=== PATIENT | female | born 1975 | race Caucasian/White ===

== ENCOUNTER 2020-05-02 12:02 | Inpatient (IN) | payer OTHER, SELFPAY ==
[2020-05-02] VITALS (10 sets, daily range): BP systolic 157–243; BP diastolic 12–121; PULSE 77–95; RESP 18–20; TEMP 36.6–36.7; O2SAT 97–100; BMI 33.9
--- NOTE | ~2020-05-02 | US_ITS ---
EXAMINATION: US retroperitoneal duplex ltd DATE: 05/03/2020 09:19 INDICATION: Uncontrolled hypertension TECHNIQUE: Multiple grayscale, color Doppler, and pulsed Doppler images of the kidneys and renal jose claudine were obtained. COMPARISON: None. FINDINGS: The aorta peak systolic velocity is 110 cm/s. The right renal artery peak systolic velocity is 117 cm /s in the proximal segment, 94 cm/s in the mid segment, and 69 cm/s in the distal segment. The left r enal artery peak systolic velocity is 106 cm/s in the proximal segment, 70 cm/s in the mid segment, a nd 62 cm/s in the distal segment. Kidneys are normal in length measuring 12.1 cm on the right and 11. 7 cm on the left, both kidneys demonstrating smooth contours, normal echogenicity and no hydronephros is IMPRESSION: 1. No Doppler evidence of renal artery stenosis. Reviewed, dictated and finalized at location A.
--- NOTE | ~2020-05-02 | XR_ITS ---
EXAMINATION: XR chest 2V 05/02/2020 12:58 INDICATION: Chest pain PROCEDURE: 2 view chest COMPARISON: Comparison to multiple prior studies sequentially, with oldest reviewed study dated 03/28. FINDINGS: The lungs are clear. The cardiomediastinal silhouette is within normal limits. There are no pleural effusions. There is no pneumothorax suspected. IMPRESSION: 1: NO ACUTE CARDIOPULMONARY DISEASE. Reviewed, dictated and finalized at location A.
--- NOTE | ~2020-05-02 | US_ITS ---
EXAMINATION: US thyroid DATE: 05/03/2020 09:19 INDICATION: Enlarged thyroid TECHNIQUE: Multiple ultrasound images of the thyroid were obtained. COMPARISON: None. FINDINGS: The right thyroid lobe measures 5.3 x 2.0 x 1.7 cm. The left thyroid lobe measures 4.0 x 1.9 x 1.7 c m. There is diffuse heterogeneously decreased echogenicity with coarsened echotexture throughout the thyroid. There are couple solid hyperechoic nodules with smooth margins and without internal echogen ic foci, the smaller measuring 6 mm in maximal diameter and the larger measuring 10 x 6 x 4 mm (TI-RA DS 3, mildly suspicious , FNA if >=2.5 cm, annual followup is >1.5 cm) IMPRESSION: 1. Enlarged heterogeneous thyroid with the a couple TI RADS 3 nodules, the larger measuring 10 mm whi ch does not meet criteria for biopsy or follow-up. Reviewed, dictated and finalized at location A. IMPRESSION: 1. Enlarged heterogeneous thyroid with the a couple TI RADS 3 nodules, the larg er measuring 10 mm which does not meet criteria for biopsy or follow-up.
--- NOTE | ~2020-05-02 | CT_ITS ---
EXAMINATION: CT brain wo con INDICATION: Headache, uncontrolled hypertension COMPARISON: 02/13/2013 TECHNIQUE: Standard unenhanced head CT. The dose-length product (DLP) was 605.33 mGy-cm. The mA was a djusted according to patient size. Iterative reconstruction technique was employed. FINDINGS: There is no intracranial hemorrhage, acute infarction, or abnormal mass lesion. The ventric les are normal. There is no abnormal mass effect or midline shift. The vazquez-white matter differentiat ion is normal. The basal cisterns are patent. The orbits are normal. The paranasal sinuses, mastoids and calvarium are normal. IMPRESSION: 1. No acute intracranial abnormality. Reviewed, dictated and finalized at location A.
--- NOTE | ~2020-05-02 | XR_ITS ---
EXAMINATION: XR abdomen/kub 1V EXAM DATE: 05/04/2020 14:28 INDICATION: Intractable vomiting. TECHNIQUE: Frontal projection(s) of the abdomen for interpretation. Comparison is made to prior exami nation from 08/15/2005. FINDINGS: There are cholecystectomy clips. There is expected amount of colonic stool and gas. No sm all bowel dilation, nonobstructive bowel gas pattern. There are no suspicious calcifications identi fied. There is no organomegaly suspected. The bones are unremarkable. IMPRESSION: Unremarkable abdomen x-ray exam. Reviewed, dictated and finalized at location B.
--- NOTE | 2020-05-02 12:20 | ED.WEAKNESS ---
HPI - Weakness General Chief complaint: Weakness Stated complaint: NAUSEA,WEAKNESS Time Seen by Provider: 05/02/20 12:07 History of Present Illness HPI Narrative: Patient is a 44-year-old female who presents ER with weakness. Reports symptoms began this morning. Associate with some lightheadedness and also central chest discomfort. Reports it feels like she needs to belch but she cannot. She did have improvement of the sensation with Zofran. Denies history of hypertension. No headache or change in vision. No exertional component. Related Data Home Medications Medication Instructions Recorded Confirmed levothyroxine [Synthroid] 150 mcg PO DAILY 05/02/20 05/02/20 Allergies Allergy/AdvReac Type Severity Reaction Status Date / Time nitrofurantoin Allergy Unknown Rash Verified 05/02/20 12:06 Review of Systems Review of Systems: All systems reviewed & are unremarkable except as noted in HPI and below Constitutional: Constitutional: Denies chills, Denies fever(s) and Denies weakness ENT: Reports dizziness, Denies nasal congestion and Denies sore throat Cardiovascular: Cardiovascular: Reports chest pain, Denies rapid heart rate and Denies radiating jaw, neck or arm pain Gastrointestinal: Gastrointestinal: Denies abdominal pain, Reports nausea and Denies vomiting PMFSH Past Medical History Medical History (Updated 05/02/20 @ 19:09 by Tristin Rivers MD) Hypothyroidism Surgical History Surgical History (Updated 05/02/20 @ 14:03 by Tristin Rivers MD) History of appendectomy History of cholecystectomy Family History Family History (Updated 03/13/16 @ 10:19 by DOCTOR UNKNOWN) Other Family history of Alzheimer's disease Family history of glaucoma Hypertension Social History Social History Smoking packs per day: 1 Smoking cigarettes per day: 20.0 Years smoked: 10 Smoking pack-years: 10.00 Smoking status: Former smoker Alcohol intake: never Substance use: never Substance use type: does not use Spiritual care concerns: No Exam Narrative: Exam Narrative: GENERAL: Well-appearing, well-nourished, and in no acute distress. HEAD: Normocephalic, atraumatic. ENT: Mucous membranes moist. CHEST: Clear to auscultation. No respiratory distress. HEART: Regular rate and rhythm. Normal peripheral pulses. ABDOMEN: Soft, nontender, nondistended. EXTREMITIES: Normal range of motion. No edema. SKIN: Warm, dry, no rash. NEURO: Alert and oriented x3. PSYCH: Normal mood and affect. Course Vital Signs Vital signs: Vital Signs Temperature 98.0 F 05/02/20 12:01 Pulse Rate 90 05/02/20 12:01 Respiratory Rate 20 05/02/20 12:01 Blood Pressure 218/119 H 05/02/20 12:01 Pulse Oximetry 98 05/02/20 12:01 Temperature 98.0 F 05/02/20 12:01 Pulse Rate 77 05/02/20 15:00 Respiratory Rate 20 05/02/20 15:00 Blood Pressure 157/78 H 05/02/20 15:00 Pulse Oximetry 100 05/02/20 15:00 MDM - Weakness Lab Data Result diagrams: 05/02/20 12:42 05/02/20 12:42 Labs: Lab Results 05/02/20 05/02/20 05/02/20 Range/Units 12:42 12:42 12:42 WBC 4.9 (4.5-10.0) K/mm3 RBC 4.81 (4.2-5.4) M/mm3 Hgb 13.9 (12.0-15.0) g/dL Hct 41.5 (37.0-47.0) % MCV 86.3 (80-100) fl MCH 28.9 (26-34) pg MCHC 33.5 (32-36) g/dl RDW 12.6 (11.5-14.5) % Plt Count 190 (150-375) k/mm3 MPV 10.2 (7.4-10.4) fl Immature Gran % (Auto) 0.2 (0-0.5) % Neut % (Auto) 54.6 (45.5-73.1) % Lymph % (Auto) 31.7 (18.3-44.2) % Arroyo % (Auto) 8.6 H (2.6-8.5) % Eos % (Auto) 3.9 (0-4.4) % Baso % (Auto) 1.0 (0.2-1.2) % Lymph # (Auto) 1.55 (0.9-3.2) K/mm3 [place]royo # (Auto) 0.4 (0.1-0.6) K/mm3 Eos # (Auto) 0.2 (0-0.3) K/mm3 Baso # (Auto) 0.1 (0.0-0.1) K/mm3 Abs Immat Gran (auto) 0.01 (0.00-0.031) K/mm3 Absolute Neuts (auto) 2.7 (1.3-6.7) K/mm3 Absolute Nucleated RBC 0.0 (0.0-
[2020-05-02] MEDS: hydrALAZINE HCL 20 MG/ML VIAL 10 MG IV PUSH ×3 (12:42→20:27)
[2020-05-02 12:49] LABS: Basophils Absolute Auto 0.1 K/mm3 (0.0-0.1); Eosinophils Absolute Auto 0.2 K/mm3 (0-0.3); Eosinophils Percent Auto 3.9 % (0-4.4); Hematocrit 41.5 % (37.0-47.0); Hemoglobin 13.9 g/dL (12.0-15.0); Immature Granulocyte Absolute 0.01 K/mm3 (0.00-0.031); Immature Granulocyte Percent A 0.2 % (0-0.5); Lymphocytes Absolute Auto 1.55 K/mm3 (0.9-3.2); Lymphocytes Percent Auto 31.7 % (18.3-44.2); Mean Corpuscular HGB Conc 33.5 g/dl (32-36); Mean Corpuscular Hemoglobin 28.9 pg (26-34); Mean Corpuscular Volume 86.3 fl (80-100); Mean Platelet Volume 10.2 fl (7.4-10.4); Monocytes Absolute Auto 0.4 K/mm3 (0.1-0.6); Monocytes Percent Auto 8.6 % (2.6-8.5); Neutrophils Absolute Auto 2.7 K/mm3 (1.3-6.7); Neutrophils Percent Auto 54.6 % (45.5-73.1); Platelet Count Result 190 k/mm3 (150-375); Red Blood Count 4.81 M/mm3 (4.2-5.4); Red Cell Distribution Width 12.6 % (11.5-14.5); White Blood Count 4.9 K/mm3 (4.5-10.0)
[2020-05-02 13:00] LABS: Partial Thromboplastin Time 37.5 SECONDS (22.3-36.8)
[2020-05-02 13:00] LABS: Add Urine Microscopic? NO; Appearance Urine Clear (Clear); Bilirubin Urine Negative (Negative); Blood Urine Negative (Negative); Color Urine Colorless (Yellow); Glucose Urine UA Negative (Negative); Ketones Urine Negative (Negative); Leukocyte Esterase Ur Negative LEU/UL (Negative); Nitrate Urine Negative (Negative); Protein Urine Negative (Negative); Urobilinogen Urine Negative mg/dL (<2.0)
[2020-05-02 13:01] LABS: Blood Urea Nitrogen 11 mg/dL (7-17); Calcium 9.2 mg/dL (8.4-10.2); Carbon Dioxide 29 mmol/L (22-30); Chloride 102 mmol/L (98-107); Estimated CRCL calculation 77 ml/min; Estimated Glomerular Filt Rate 60; Glucose 122 mg/dL (65-105); Potassium 3.7 mmol/L (3.4-5.0); Sodium 139 mmol/L (137-145)
[2020-05-02 13:03] LABS: Specific Grav Ur 1.004 (1.001-1.035)
[2020-05-02 13:13] LABS: Troponin I < 0.012 ng/mL (0.000-0.034)
--- NOTE | 2020-05-02 13:41 | ECG_ITS ---
Measurements Intervals [place] Rate: 83 P: 33 IN: 151 QRS: -28 QRSD: 94 T: 29 QT: 374 QTc: 441 Interpretive Statements SINUS RHYTHM LEFT VENTRICULAR HYPERTROPHY AND ST-T CHANGE POOR R WAVE PROGRESSION, ANTERIOR LEADS MINIMAL Q WAVES- HIGH LATERAL LEADS BORDERLINE ECG Electronically Signed On 05-02-2020 13:47:52 CDT by Eliu Palmer D.O.
[2020-05-02 16:18] LABS: Troponin I < 0.012 ng/mL (0.000-0.034)
[2020-05-02] MEDS: ACETAMINOPHEN 325 MG TABLET 650 MG PO (16:59)
--- NOTE | 2020-05-02 18:18 | ADMGEN ---
This patient, Nataly Parekh, was admitted to IMU Room 213-01. Patient/family oriented to hospital policies and general routines including ID bracelet, bed and alarms, visiting hours, pain management, procedures, bathroom and other care routines, personal items, smoking policy, room service/diet, and visiting hours. Valuables list has been completed. Information on how to activate the Rapid Response Team has been discussed. Patient/Family are encouraged to report perceived risks to care and to ask questions if they do not understand what they are told or what they should do.
[2020-05-02] MEDS: ONDANSETRON INJ 4 MG/2 ML VIAL IV PUSH ×2 (18:32→21:18)
[2020-05-02 18:37] LABS: Troponin I < 0.012 ng/mL (0.000-0.034)
--- NOTE | 2020-05-02 19:30 | PM.IMHP ---
H&P: HPI History of Present Illness Chief complaint: Dizziness and chest discomfort. Narrative: Nataly Parekh is a pleasant 44-year-old female with hypothyroidism who presented to the emergency department earlier today with complaints of dizziness and chest discomfort. Not long after waking this morning she thought that she was suffering from indigestion and reports a fullness and pressure sensation in her mid chest. She went about her day however a couple of hours thereafter she began to feel dizzy, fatigued, and reports feelings of racing heart. She also notes a pressure-like headache that starts at her forehead and travels up to the crown of her head. Blood pressure in the emergency department was as high as 243/121 and with further questioning she does mention that she was placed on metoprolol many years ago to help with her migraine headaches, which seemed to be causing a ?slight elevation? in her blood pressures. On review of her electronic medical records, she has had pretty consistent elevated blood pressure readings dating back to 2012, ranging from the 140s to 190 systolic. More recently she had an appoint with her media marketing director and at that time there was no mention of her blood pressure being elevated. At the time my evaluation, she continues to have a headache. She has also had nausea and several episodes of emesis this evening. She denies visual changes. No focal weakness or paresthesias. No current chest pain or shortness of breath. No hematuria or foamy urine. Review of Systems Review of Systems: Narrative: Twelve systems were reviewed with pertinent positives and negatives as per HPI. She denies fever, chills, and sweats. No recent cold or flu symptoms. She denies recent travel and sick contacts. She recently established with a new media marketing director and in fact has an appointment today, I believe for thyroid ultrasound as she was told that she may have a goiter. No recent change in medications. She does not take [id number] supplements. She drinks 1 to 2 cups of coffee in the morning. She does not drink soda. No recent stressful situations or anxiety. No lower extremity edema or history of venous thromboembolism. Except as documented, all other systems were reviewed and are negative. [facility] Past Medical History Medical History (Updated 05/02/20 @ 22:36 by Arabella Abrams PA-C) History of migraine headaches History of urinary tract infection Hypothyroidism Surgical History Surgical History (Updated 05/02/20 @ 22:33 by Arabella Abrams PA-C) History of appendectomy (2007) History of cholecystectomy History of tubal ligation (~2002) Family History Family History Other Family history of Alzheimer's disease Family history of glaucoma Hypertension Social History Social History (Updated 05/02/20 @ 22:34 by Arabella Abrams PA-C) Social History: The patient lives with her , their 3 biological children, their recently adopted child, and 2 foster children. She is a [id number] mother. She has a 10 pack year smoking history and quit in 2008. No alcohol or illicit substance abuse. She designates her , Al, as her surrogate decision maker and she wishes to be a full code. Smoking packs per day: 1 Smoking cigarettes per day: 20.0 Years smoked: 10 Smoking pack-years: 10.00 Smoking status: Former smoker Alcohol intake: never Substance use: never Substance use type: does not use Spiritual care concerns: No Meds Home Medications and Allergies Home Medications Medication Instructions Recorded Confirmed Type levothyroxine [Synthroid] 150 mcg PO DAILY 05/02/20 05/02/20 History Allergies Allergy/AdvReac Type Severity Reaction Status Date / Time nitrofurantoin Allergy Unknown Rash Verified 05/02/20 12:06 Vital Signs Vital Signs - 24 hr 05/02/20 12:01 05/02/20 12:39 05/02/20 12:49 Tem
[2020-05-02] MEDS: MORPHINE SULFATE 4 MG/ML INJ IV PUSH (21:18)
[2020-05-02 21:28] LABS: Alanine Aminotransferase 25 U/L (4-35); Albumin Level 4.8 g/dL (3.5-5.1); Alkaline Phosphatase 92 U/L (38-126); Aspartate Amino Transferase 30 U/L (14-36); Bilirubin,Total 0.7 mg/dL (0.2-1.3); Magnesium 2.2 mg/dL (1.6-2.3)
[2020-05-02 21:34] LABS: Free T4 Free Thyroxine Reflex 1.62 ng/dL (0.78-2.19)
[2020-05-02 22:13] LABS: Total Triiodothyronine (T3) 1.34 NG/ML (0.97-1.69)
[2020-05-02] MEDS: METOPROLOL TARTRATE 25 MG TABLET PO (22:30)
[2020-05-03] VITALS (13 sets, daily range): BP systolic 130–163; BP diastolic 72–98; PULSE 59–84; RESP 14–20; TEMP 35.9–36.8; O2SAT 96–100
[2020-05-03 04:49] LABS: Hematocrit 43.7 % (37.0-47.0); Hemoglobin 14.3 g/dL (12.0-15.0); Mean Corpuscular HGB Conc 32.7 g/dl (32-36); Mean Corpuscular Hemoglobin 28.8 pg (26-34); Mean Corpuscular Volume 88.1 fl (80-100); Mean Platelet Volume 10.5 fl (7.4-10.4); Platelet Count Result 198 k/mm3 (150-375); Red Blood Count 4.96 M/mm3 (4.2-5.4); Red Cell Distribution Width 12.8 % (11.5-14.5); White Blood Count 7.9 K/mm3 (4.5-10.0)
[2020-05-03 05:01] LABS: Alanine Aminotransferase 22 U/L (4-35); Albumin Level 4.3 g/dL (3.5-5.1); Alkaline Phosphatase 72 U/L (38-126); Aspartate Amino Transferase 26 U/L (14-36); Bilirubin,Total 0.7 mg/dL (0.2-1.3); Blood Urea Nitrogen 14 mg/dL (7-17); Calcium 8.8 mg/dL (8.4-10.2); Carbon Dioxide 26 mmol/L (22-30); Chloride 102 mmol/L (98-107); Cholesterol 232 mg/dL (0-200); Estimated CRCL calculation 78 ml/min; Estimated Glomerular Filt Rate 60; Glucose 103 mg/dL (65-105); HDL Direct 52 mg/dL; Sodium 137 mmol/L (137-145); Triglycerides 107 mg/dL (<150)
[2020-05-03 05:12] LABS: LDL Cholesterol Direct 153 mg/dL
[2020-05-03] MEDS: MORPHINE SULFATE 4 MG/ML INJ IV PUSH ×3 (08:10→19:15)
[2020-05-03] MEDS: ONDANSETRON INJ 4 MG/2 ML VIAL IV PUSH ×3 (08:11→19:10)
[2020-05-03] MEDS: METOPROLOL TARTRATE 25 MG TABLET PO ×2 (08:25→20:58)
--- NOTE | 2020-05-03 16:50 | PM.IMPN ---
Progress Note: A&P Assessment and Plan (1) Hypertensive urgency: Code(s): I16.0 - Hypertensive urgency Status: Acute Assessment and Plan: Bp better, pt to start oral bp meds Continue to monitor today Iv hydralazine for severe BP (2) Chest pressure: Code(s): R07.89 - Other chest pain Status: Acute Assessment and Plan: Likely related to her very high blood pressure. Troponins have been negative x3. Echocardiogram in a.m.; there are changes consistent with LVH. (3) Hypothyroidism: Code(s): E03.9 - Hypothyroidism, unspecified Status: Acute Assessment and Plan: TSH is low and thus will hold levothyroxine for now, Order US of thryoid on discharge. Subjective Date/time seen: 05/03/20 16:50 Interval history: Iglesia is a pleasant 44-year-old female with hypothyroidism who presented to the emergency department earlier today with complaints of dizziness and chest discomfort. Not long after waking this morning she thought that she was suffering from indigestion and reports a fullness and pressure sensation in her mid chest. Found to have high BPs, pt Bp is better today but still feels symptomatic nausea and headaches, chest pain on admission, nothing now Review of Systems Review of Systems: All systems reviewed & are unremarkable except as noted in HPI and below Exam Const: General: cooperative and healthy appearing; No in distress Nutritional Appearance: overweight Orientation/consciousness: oriented to person HENMT: Head: normal to inspection Resp: Effort & Inspection: no respiratory distress Auscultation: no rhonchi and no wheezes Cardio: Rate: regular rate Rhythm: regular rhythm GI: Inspection: normal to inspection GI Palp: No abdominal tenderness, No Guarding due to palpation present (GI) and No Hepatomegaly present Auscultation: normal bowel sounds Neuro: General: oriented to person Objective Data Vital Signs Vital Signs: Vital Signs - 24 hr 05/02/20 18:17 05/02/20 19:13 05/02/20 20:00 Temperature 36.6 C Pulse Rate 85 Respiratory Rate 18 Blood Pressure 203/97 H 204/104 H 158/105 H Pulse Oximetry 98 05/02/20 20:21 05/02/20 22:30 05/03/20 00:00 Temperature 36.1 C L Pulse Rate 81 84 Respiratory Rate 18 Blood Pressure 157/95 H 130/84 Pulse Oximetry 96 05/03/20 04:00 05/03/20 04:04 05/03/20 08:00 Temperature 35.9 C L 36.6 C Pulse Rate 61 69 78 Respiratory Rate 20 14 Blood Pressure 143/98 H 152/90 H Pulse Oximetry 97 100 05/03/20 08:25 05/03/20 12:00 05/03/20 16:00 Temperature 36.3 C L 36.5 C Pulse Rate 77 63 65 Respiratory Rate 18 14 Blood Pressure 152/96 H 150/85 H Pulse Oximetry 99 99 Intake/Output Intake/Output: Intake & Output 04/30/20 05/01/20 05/02/20 05/03/20 23:59 23:59 23:59 23:59 Intake Total 440 Output Total 300 500 Balance -300 -60 Meds/Results Medications: Active Medications Generic Name Dose Route Start Last Admin Trade Name Freq PRN Reason Stop Dose Admin Acetaminophen 650 mg 05/02/20 14:32 05/02/20 16:59 Tylenol Tablet PO 650 mg Q4H PRN Administration Mild Pain (1-3) or Fever Hydrocodone Bitart/Acetaminophen 1 tab 05/02/20 14:32 05/02/20 18:33 Kyburz 5-325 Mg PO 1 tab Q4H PRN Administration Pain Rated 4-6 Hydralazine HCl 10 mg 05/02/20 20:12 05/02/20 20:27 Apresoline Hcl Inj IV PUSH 10 mg Q4H PRN Administration SBP > 165 or DBP > 105 Metoprolol Tartrate 25 mg 05/02/20 21:20 05/03/20 08:25 Lopressor PO 25 mg Q12HR JUANIS Administration Morphine Sulfate 4 mg 05/02/20 14:32 05/03/20 14:00 Morphine Sulfate Inj IV PUSH 4 mg Q2H PRN Administration Pain Rated 7-10 Ondansetron HCl 4 mg 05/02/20 14:32 05/03/20 14:03 Zofran
--- NOTE | 2020-05-03 19:01 | PC.NURSE ---
This patient, Nataly Parekh, was received from IMU on 05/03/20 at 1901. Personal belongings list checked and signed. Patient/family oriented to unit policies and routines
[2020-05-03] MEDS: hydrALAZINE HCL 20 MG/ML VIAL 10 MG IV PUSH (19:10)
--- NOTE | 2020-05-03 20:16 | ECHO_ITS ---
Patient Info Name: Nataly Parekh Age: 44 years : 1975 Gender: Female Ht: 68 in Wt: 223 lbs BSA: 2.24 m2 HR: 74 bpm BP: 152 / 90 mmHg Heart Rhythm: Sinus Rhythm Technical Quality: Good Exam Date: 05/03/2020 9:34 AM Exam Location: [facility] Pulmonary Patient Status: Inpatient Admit Date: 05/02/2020 Staff Ordering Physician: Arabella Abrams PA-C Land Surveying Survey Worker: Abdias Patel RDCS Attending Provider: José Miguel Nails MD Referring Physician: Jose Alberto LUJNA; Exam Type: CA echo doppler color flow Study Info Indications R07.9 - Chest pain, unspecified Complete two-dimensional, color flow and Doppler transthoracic echocardiogram is performed. Strain analysis performed. History/Risk Factors Uncontrolled HTN; chest pain. Summary 1. Normal LV size, moderate LVH, normal LV systolic function, EF 65-70%. Grade 1 diastolic dysfunction. Global longitudinal strain -14%. No significant valvular abnormalities. Unable to assess RVSP due to inadequate TR jet velocity. Left Ventricle Left ventricular chamber dimension is normal. Left ventricular systolic function is normal, estimated at 65-70%. There is moderately increased left ventricular wall thickness. The left ventricular diastolic function is grade I diastolic dysfunction. Right Ventricle Right ventricular chamber dimension is normal. Right ventricular systolic function is normal. Left Atria Left atrial chamber dimension is normal. Right Atria Right atrial chamber dimension is normal. Aortic Valve The aortic valve is trileaflet. There is no aortic valve stenosis. There is no aortic valve regurgitation. Pulmonic Valve The pulmonic valve is normal. There is no pulmonic valve stenosis. There is trace pulmonic regurgitation. Mitral Valve The mitral valve has normal leaflets. There is no mitral valve stenosis. There is no mitral valve regurgitation. Tricuspid Valve The tricuspid valve leaflets are normal. There is no significant tricuspid valve stenosis. There is trace tricuspid valve regurgitation. Pericardium/Pleural The pericardium appears normal. There is no pericardial effusion. Aorta The prox ascending aorta size is normal. Left Ventricular Outflow Tract Name Value Normal LVOT 2D LVOT Diameter 1.9 cm LVOT Doppler LVOT Peak Gradient 6 mmHg LVOT Mean Gradient 3 mmHg LVOT VTI 25 cm LVOT VTI/AV VTI Ratio 0.8 LVOT Stroke Volume 72 ml LVOT CO 4.9 l/min LVOT CI 2.2 l/min/m2 Mitral Valve Name Value Normal MV Doppler MV Decel [place] 280 cm/s2 MV PHT 65 ms MV A
[2020-05-04] VITALS (11 sets, daily range): BP systolic 138–161; BP diastolic 63–92; PULSE 55–78; RESP 16–18; TEMP 36.8–36.9; O2SAT 95–99
[2020-05-04] MEDS: MORPHINE SULFATE 4 MG/ML INJ IV PUSH ×3 (07:58→18:09)
[2020-05-04] MEDS: ONDANSETRON INJ 4 MG/2 ML VIAL IV PUSH ×3 (07:58→18:11)
[2020-05-04] MEDS: TRIAMTERENE 37.5 MG/HCTZ 25 MG (MAXZIDE) TABLET 1 TAB PO (08:57)
[2020-05-04] MEDS: METOPROLOL TARTRATE 25 MG TABLET PO ×2 (08:57→20:07)
--- NOTE | 2020-05-04 14:29 | PM.IMPN ---
Progress Note: A&P Assessment and Plan (1) Hypertensive urgency: Code(s): I16.0 - Hypertensive urgency Status: Acute Assessment and Plan: Bp better, pt to start oral bp meds- metoprolol and dyazide Iv hydralazine for severe BP (2) Chest pressure: Code(s): R07.89 - Other chest pain Status: Acute Assessment and Plan: Likely related to her very high blood pressure. Troponins have been negative x3. Echocardiogram in a.m.; there are changes consistent with LVH. (3) Hypothyroidism: Code(s): E03.9 - Hypothyroidism, unspecified Status: Acute Assessment and Plan: TSH is low and thus will hold levothyroxine for now, Order US of thyroid on discharge. (4) Intractable vomiting: Code(s): R11.10 - Vomiting, unspecified Status: Acute Assessment and Plan: Pt to have IV pepcid, IV anti-emetics, laxatives, iv fluids KUB ordered and CT scan ordered GI consult ordered for consult for intractable vomiting and nausea Subjective Date/time seen: 05/04/20 14:29 Interval history: Iglesia is a pleasant 44-year-old female with hypothyroidism who presented to the emergency department earlier today with complaints of dizziness and chest discomfort. Not long after waking this morning she thought that she was suffering from indigestion and reports a fullness and pressure sensation in her mid chest. Pts bp is better controlled now. Pt complains of severe nausea and intractable vomiting. I have ordered KUB as pt states she has not opened her bowels since friday. I have consulted GI. I will also order CT abdomen for patient. Pt have need a GI scope, GI to decide. Review of Systems Review of Systems: All systems reviewed & are unremarkable except as noted in HPI and below Gastrointestinal: Gastrointestinal: Reports dyspepsia, Reports heartburn, Reports nausea and Reports vomiting Comments: intractable vomiting Exam Const: General: cooperative and healthy appearing Nutritional Appearance: overweight Orientation/consciousness: oriented to person Other: Nauseated, vomiting in the room HENMT: Head: normal to inspection Resp: Effort & Inspection: no respiratory distress Auscultation: no rhonchi and no wheezes Cardio: Rate: regular rate Rhythm: regular rhythm GI: Inspection: normal to inspection Auscultation: normal bowel sounds Neuro: General: oriented to person Objective Data Vital Signs Vital Signs: Vital Signs - 24 hr 05/03/20 16:00 05/03/20 18:00 05/03/20 20:00 Temperature 36.5 C 36.8 C Pulse Rate 68 65 73 Respiratory Rate 14 18 Blood Pressure 150/85 H 163/77 H Pulse Oximetry 99 97 05/03/20 20:58 05/03/20 22:00 05/04/20 00:00 Temperature 36.8 C Pulse Rate 74 70 76 Respiratory Rate 18 Blood Pressure 145/72 H Pulse Oximetry 97 05/04/20 00:45 05/04/20 04:45 05/04/20 06:00 Temperature 36.9 C Pulse Rate 76 55 L 69 Respiratory Rate 18 Blood Pressure 138/77 Pulse Oximetry 95 05/04/20 07:40 05/04/20 08:57 05/04/20 09:15 Temperature Pulse Rate 78 68 68 Respiratory Rate Blood Pressure 153/92 H 156/83 H Pulse Oximetry 05/04/20 13:05 Temperature Pulse Rate 64 Respiratory Rate Blood Pressure 150/63 H Pulse Oximetry 97 Intake/Output Intake/Output: Intake & Output 05/01/20 05/02/20 05/03/20 05/04/20 23:59 23:59 23:59 23:59 Intake Total 560 575 Output Total 300 500 375 Balance -300 60 200 Meds/Results Medications: Active Medications Generic Name Dose Route Start Last Admin Trade Name Freq PRN Reason Stop Dose Admin Acetaminophen 650 mg 05/02/20 14:32 05/02/20 16:59 Tylenol Tablet PO 650 mg Q4H PRN Administration Mild Pain (1-3) or Fever Hydrocodone Bitart/Acetaminophen 1 tab 05/02/20 14:32 05/02/
[2020-05-04] MEDS: DEXTROSE 5%/0.45% SOD CHL 1,000 ML 70 ML IV CONT (14:47)
--- NOTE | 2020-05-04 16:00 | WPDGICN ---
Assessment and Plan Assessment and plan (1) Hypertension, uncontrolled: Code(s): I10 - Essential (primary) hypertension Status: Acute (2) Hypothyroidism: Code(s): E03.9 - Hypothyroidism, unspecified Status: Acute (3) Intractable vomiting: Code(s): R11.10 - Vomiting, unspecified Status: Acute Assessment and Plan: Patient has had intractable nausea and vomiting since admission hospital. Likely related to her hypertensive urgency. Her symptoms however did start with dyspepsia she does have pain on swallowing soda and other acidic beverages. Patient has been intolerant of oral intake over the last several days. Plan is to proceed with EGD to evaluate for her symptoms of dyspepsia an ongoing nausea and vomiting. We will plan this in the morning. GI Consult Note Consult date/time: 05/04/20 16:00 HPI: Nataly Parekh is a 44 year old female seen in evaluation at the request of the hospitalist service. Patient has an underlying history hypothyroidism. She presented to the emergency room on 05/02/2020 because of dizziness and chest discomfort. She reports complaints of indigestion. Had pain on swallowing a soda in the mid substernal portion of the chest. After admission to the hospital she was found to have hypertension of urgency with quite elevated blood pressure. Since this time she has been placed on antihypertensive medications. She continues to have indigestion. She has had nausea vomiting rather persistently. Unable to keep food down. For this reason I have been consulted. Patient denies any prior history of ulcers. She has had no prior abdominal surgery. She does not typically take medications for her stomach. She has had no recent travel. Previous surgery includes appendectomy and cholecystectomy. Family history is noncontributory. Review of Systems Review of Systems: All systems reviewed & are unremarkable except as noted in HPI and below PMFSH Past Medical History Medical History (Updated 05/04/20 @ 14:35 by Mary Borrego MD) History of migraine headaches History of urinary tract infection Hypothyroidism Surgical History Surgical History (Updated 05/02/20 @ 22:33 by Arabella Abrams PA-C) History of appendectomy (2007) History of cholecystectomy History of tubal ligation (~2002) Family History Family History Other Family history of Alzheimer's disease Family history of glaucoma Hypertension Social History Social History (Updated 05/02/20 @ 22:34 by Arabella Abrams PA-C) Social History: The patient lives with her , their 3 biological children, their recently adopted child, and 2 foster children. She is a xvxv-hu-efem mother. She has a 10 pack year smoking history and quit in 2008. No alcohol or illicit substance abuse. She designates her , Al, as her surrogate decision maker and she wishes to be a full code. Smoking packs per day: 1 Smoking cigarettes per day: 20.0 Years smoked: 10 Smoking pack-years: 10.00 Smoking status: Former smoker Alcohol intake: never Substance use: never Substance use type: does not use Spiritual care concerns: No Meds Home Medications and Allergies Home Medications Medication Instructions Recorded Confirmed Type levothyroxine [Synthroid] 150 mcg PO DAILY 05/02/20 05/02/20 History Allergies Allergy/AdvReac Type Severity Reaction Status Date / Time nitrofurantoin Allergy Unknown Rash Verified 05/02/20 12:06 Vital Signs Vital Signs - 24 hr 05/03/20 18:00 05/03/20 20:00 05/03/20 20:58 Temperature 98.2 F Pulse Rate 65 73 74 Respiratory Rate 18 Blood Pressure 163/77 H Pulse Oximetry 97 05/03/20 22:00 05/04/20 00:00 05/04/20 00:45 Temperature 98.3 F Pulse Rate 70 76 76 Respiratory Rate 18 Blood Pressure 145/72 H Pulse Oximetry 97 05/04/20 04:45 05/04/20 06:00
[2020-05-04] MEDS: LEVOTHYROXINE SODIUM 150 MCG TABLET PO (18:07)
--- NOTE | 2020-05-04 18:35 | WPDANESEPPF ---
Anes - Initial Pre Proc Eval Procedure: Operation Date: 05/05/20 10:00 Proposed Procedures p Esophagogastroduodenoscopy - Ernesto Wright MD Date/Time: 05/04/20 18:35 Surgeon: Kyle Pre Op Diagnosis: Dizziness and chest discomfort. Patient Data Age: 44 Gender: F Height: 1.73 m Weight: 98.5 kg Last Vital Signs Temp 36.8 C 05/04/20 14:00 Pulse 66 05/04/20 14:00 Resp 16 05/04/20 14:00 BP 161/83 H 05/04/20 14:00 Pulse Ox 99 05/04/20 14:00 Allergies Allergy/AdvReac Type Severity Reaction Status Date / Time nitrofurantoin Allergy Unknown Rash Verified 05/05/20 07:04 Home Medications Medication Instructions Recorded Confirmed Type levothyroxine [Synthroid] 150 mcg PO DAILY 05/02/20 05/05/20 History Patient hx anesthesia problems: none Family hx anesthesia problems: none PMFSH Past Medical History Medical History (Updated 05/04/20 @ 18:34 by Shiv Hermosillo DO) History of migraine headaches History of urinary tract infection Hypertension Hypothyroidism Surgical History Surgical History (Updated 05/02/20 @ 22:33 by Arabella Abrams PA-C) History of appendectomy (2007) History of cholecystectomy History of tubal ligation (~2002) Family History Family History Other Family history of Alzheimer's disease Family history of glaucoma Hypertension Social History Social History (Updated 05/02/20 @ 22:34 by Arabella Abrams PA-C) Social History: The patient lives with her , their 3 biological children, their recently adopted child, and 2 foster children. She is a [id number]-[id number] mother. She has a 10 pack year smoking history and quit in 2008. No alcohol or illicit substance abuse. She designates her , Al, as her surrogate decision maker and she wishes to be a full code. Smoking packs per day: 1 Smoking cigarettes per day: 20.0 Years smoked: 10 Smoking pack-years: 10.00 Smoking status: Former smoker Alcohol intake: never Substance use: never Substance use type: does not use Spiritual care concerns: No Anes - Eval Final PreProcedure Day of Procedure 05/04/20 18:35 Patient weight: obese Heart: regular rate and rhythm Lungs: clear to auscultation and normal air movement Airway: Mallampati scale class III Neurological: alert and oriented Last oral intake: >/= 8 hours ASA classification: III Emergent: yes Anesthetic plan: proceed Anesthesia type and monitoring: general GIVS and standard monitoring Informed Consent: The patient's anesthetic plan and its attendant risks and benefits were discussed with the patient/family/POA. Questions were solicited and answers provided to the satisfaction of the patient/family/POA.
[2020-05-05] VITALS (10 sets, daily range): BP systolic 126–155; BP diastolic 70–92; PULSE 58–66; RESP 12–20; TEMP 36.2–36.8; O2SAT 95–98
[2020-05-05] MEDS: DEXTROSE 5%/0.45% SOD CHL 1,000 ML 70 ML IV CONT (05:01)
[2020-05-05 06:55] LABS: Blood Urea Nitrogen 21 mg/dL (7-17); Calcium 8.9 mg/dL (8.4-10.2); Carbon Dioxide 27 mmol/L (22-30); Chloride 100 mmol/L (98-107); Estimated CRCL calculation 64 ml/min; Estimated Glomerular Filt Rate 48; Glucose 102 mg/dL (65-105); Potassium 3.6 mmol/L (3.4-5.0); Sodium 137 mmol/L (137-145)
[2020-05-05] MEDS: LACTATED RINGERS 1,000 ML 150 ML IV CONT (07:16)
[2020-05-05 07:22] LABS: Hematocrit 43.9 % (37.0-47.0); Hemoglobin 14.4 g/dL (12.0-15.0); Mean Corpuscular HGB Conc 32.8 g/dl (32-36); Mean Corpuscular Hemoglobin 28.9 pg (26-34); Mean Corpuscular Volume 88.2 fl (80-100); Mean Platelet Volume 10.5 fl (7.4-10.4); Platelet Count Result 208 k/mm3 (150-375); Red Blood Count 4.98 M/mm3 (4.2-5.4); Red Cell Distribution Width 12.7 % (11.5-14.5); White Blood Count 7.8 K/mm3 (4.5-10.0)
[2020-05-05] MEDS: BENZOCAINE (*SP) 60 ML SPRAY CAN (HURRICAINE) 1 SPRAY MUCOUS MEM (07:32)
--- NOTE | 2020-05-05 07:44 | WPDANESEPPF ---
Anes - Initial Pre Proc Eval Procedure: Operation Date: 05/05/20 10:00 Proposed Procedures p Esophagogastroduodenoscopy - Ernesto Wright MD Date/Time: 05/05/20 07:44 Surgeon: Stephane Pre Op Diagnosis: Dizziness and chest discomfort. Patient Data Age: 44 Gender: F Height: 1.73 m Weight: 98.5 kg Last Vital Signs Temp 36.5 C 05/05/20 07:07 Pulse 66 05/05/20 07:07 Resp 12 05/05/20 07:07 BP 144/80 H 05/05/20 07:07 Pulse Ox 96 05/05/20 07:07 Allergies Allergy/AdvReac Type Severity Reaction Status Date / Time nitrofurantoin Allergy Unknown Rash Verified 05/05/20 07:04 Home Medications Medication Instructions Recorded Confirmed Type levothyroxine [Synthroid] 150 mcg PO DAILY 05/02/20 05/05/20 History Laboratory Tests 05/05/20 05/05/20 06:26 06:26 WBC 7.8 K/mm3 K/mm3 (4.5-10.0) RBC 4.98 M/mm3 M/mm3 (4.2-5.4) Hgb 14.4 g/dL g/dL (12.0-15.0) Hct 43.9 % % (37.0-47.0) MCV 88.2 fl fl (80-100) MCH 28.9 pg pg (26-34) MCHC 32.8 g/dl g/dl (32-36) RDW 12.7 % % (11.5-14.5) Plt Count 208 k/mm3 k/mm3 (150-375) MPV 10.5 fl H fl (7.4-10.4) Sodium 137 mmol/L mmol/L (137-145) Potassium 3.6 mmol/L mmol/L (3.4-5.0) Chloride 100 mmol/L mmol/L (98-107) Carbon Dioxide 27 mmol/L mmol/L (22-30) BUN 21 mg/dL H mg/dL (7-17) Creatinine 1.20 mg/dL H mg/dL (0.7-1.0) Estim Creat Clear Calc 64 ml/min ml/min Estimated GFR 48 L (59 - ) Glucose 102 mg/dL mg/dL (65-105) Calcium 8.9 mg/dL mg/dL (8.4-10.2) Patient hx anesthesia problems: none Family hx anesthesia problems: none PMFSH Past Medical History Medical History (Updated 05/04/20 @ 18:34 by Shiv Hermosillo DO) History of migraine headaches History of urinary tract infection Hypertension Hypothyroidism Surgical History Surgical History (Updated 05/02/20 @ 22:33 by Arabella Abrams PA-C) History of appendectomy (2007) History of cholecystectomy History of tubal ligation (~2002) Family History Family History Other Family history of Alzheimer's disease Family history of glaucoma Hypertension Social History Social History (Updated 05/02/20 @ 22:34 by Arabella Abrams PA-C) Social History: The patient lives with her , their 3 biological children, their recently adopted child, and 2 foster children. She is a [id number] mother. She has a 10 pack year smoking history and quit in 2008. No alcohol or illicit substance abuse. She designates her , Al, as her surrogate decision maker and she wishes to be a full code. Smoking packs per day: 1 Smoking cigarettes per day: 20.0 Years smoked: 10 Smoking pack-years: 10.00 Smoking status: Former smoker Alcohol intake: never Substance use: never Substance use type: does not use Spiritual care concerns: No Anes - Eval Final PreProcedure Day of Procedure 05/05/20 07:44 Informed Consent: The patient's anesthetic plan and its attendant risks and benefits were discussed with the patient/family/POA. Questions were solicited and answers provided to the satisfaction of the patient/family/POA.
[2020-05-05] MEDS: lisinopriL 5 MG TABLET PO (08:35)
--- NOTE | 2020-05-05 08:35 | PC.NURSE ---
Back from GI Lab.
[2020-05-05] MEDS: FAMOTIDINE 20 MG/2 ML VIAL IV PUSH (08:36)
[2020-05-05] MEDS: LEVOTHYROXINE SODIUM 150 MCG TABLET PO (08:36)
[2020-05-05] MEDS: LACTULOSE 20 GM/30 ML UDC PO (08:37)
[2020-05-05] MEDS: METOPROLOL TARTRATE 25 MG TABLET PO ×2 (08:37→20:30)
[2020-05-05] MEDS: TRIAMTERENE 37.5 MG/HCTZ 25 MG (MAXZIDE) TABLET 1 TAB PO (08:42)
--- NOTE | 2020-05-05 12:44 | PM.IMPN ---
Progress Note: A&P Assessment and Plan (1) Hypertensive urgency: Code(s): I16.0 - Hypertensive urgency Status: Acute Assessment and Plan: Bp better, pt to start oral bp meds- metoprolol and dyazide and lisinopril Iv hydralazine for severe BP (2) Chest pressure: Code(s): R07.89 - Other chest pain Status: Acute Assessment and Plan: Likely related to her very high blood pressure. Troponins have been negative x3. Echocardiogram in a.m.; there are changes consistent with LVH. (3) Hypothyroidism: Code(s): E03.9 - Hypothyroidism, unspecified Status: Acute Assessment and Plan: Pt had her US of her thyroid adviced to follow up with endocrinolgist (4) Intractable vomiting: Code(s): R11.10 - Vomiting, unspecified Status: Acute Assessment and Plan: Pt to have IV pepcid, IV anti-emetics, laxatives Pt to start on clears and advance diet today hopeful discharge tomorrow Subjective Date/time seen: 05/05/20 12:44 Interval history: Iglesia is a pleasant 44-year-old female with hypothyroidism who presented to the emergency department earlier today with complaints of dizziness and chest discomfort. Not long after waking this morning she thought that she was suffering from indigestion and reports a fullness and pressure sensation in her mid chest. Pts bp is better controlled now. Pt complains of severe nausea and intractable vomiting. Pt is sp KUB and EGD both are nl. Pt still feels nauseated and has not had a bowel movement for 5 days Review of Systems Review of Systems: All systems reviewed & are unremarkable except as noted in HPI and below Gastrointestinal: Gastrointestinal: Reports nausea and Reports vomiting Exam Const: General: cooperative and healthy appearing Nutritional Appearance: overweight Orientation/consciousness: oriented to person Other: Still feels nauseated HENMT: Head: normal to inspection Resp: Effort & Inspection: no respiratory distress Auscultation: no rhonchi and no wheezes Cardio: Rate: regular rate Rhythm: regular rhythm GI: Inspection: normal to inspection Auscultation: normal bowel sounds Neuro: General: oriented to person Objective Data Vital Signs Vital Signs: Vital Signs - 24 hr 05/04/20 13:05 05/04/20 14:00 05/04/20 20:07 Temperature 36.8 C Pulse Rate 64 66 72 Respiratory Rate 16 Blood Pressure 150/63 H 161/83 H Pulse Oximetry 97 99 05/04/20 22:00 05/05/20 06:00 05/05/20 07:07 Temperature 36.9 C 36.2 C L 36.5 C Pulse Rate 62 62 66 Respiratory Rate 16 16 12 Blood Pressure 141/70 H 126/75 144/80 H Pulse Oximetry 97 96 96 05/05/20 07:42 05/05/20 07:52 05/05/20 08:02 Temperature Pulse Rate 62 58 L 60 Respiratory Rate 20 17 17 Blood Pressure 144/82 H 155/92 H 141/87 H Pulse Oximetry 97 97 96 05/05/20 08:37 Temperature Pulse Rate 63 Respiratory Rate Blood Pressure Pulse Oximetry Intake/Output Intake/Output: Intake & Output 05/02/20 05/03/20 05/04/20 05/05/20 23:59 23:59 23:59 23:59 Intake Total 619 409 2609 Output Total 300 500 775 500 Balance -300 60 50 800 Meds/Results Medications: Active Medications Generic Name Dose Route Start Last Admin Trade Name Freq PRN Reason Stop Dose Admin Acetaminophen 650 mg 05/02/20 14:32 05/02/20 16:59 Tylenol Tablet PO 650 mg Q4H PRN Administration Mild Pain (1-3) or Fever Hydrocodone Bitart/Acetaminophen 1 tab 05/02/20 14:32 05/02/20 18:33 [place] 5-325 Mg PO 1 tab Q4H PRN Administration Pain Rated 4-6 Hydrocodone Bitart/Acetaminophen 1 tab 05/04/20 15:05 [place] 7.5-325 Mg PO Q6H PRN Pain Rated 7-10 Famotidine 20 mg 05/05/20 09:00 05/05/20 08:36 Pepcid Iv IV PUSH 20 mg DAILY JUANIS Administrat
[2020-05-06 06:00] VITALS: BP 124/65; PULSE 55; RESP 20; TEMP 36.8; O2SAT 97
[2020-05-06] MEDS: LEVOTHYROXINE SODIUM 150 MCG TABLET PO (06:09)
--- NOTE | 2020-05-06 07:16 | WPDANESPN ---
Anes - Prog Note Post-Op Date/Time: 05/06/20 07:16 Cardiovascular status: normal Respiratory status: normal Airway patency: baseline Mental status: baseline Vital Signs: Last Vital Signs Temp 36.8 C 05/06/20 06:00 Pulse 55 L 05/06/20 06:00 Resp 20 05/06/20 06:00 BP 124/65 05/06/20 06:00 Pulse Ox 97 05/06/20 06:00 I/O: Intake & Output 05/05/20 05/05/20 05/06/20 15:59 23:59 07:59 Intake Total 810 200 350 Output Total 1000 1100 Balance 810 -800 -750 Laboratory Tests 05/05/20 06:26 05/05/20 06:26 05/05/20 06:26 WBC 7.8 RBC 4.98 Hgb 14.4 Hct 43.9 MCV 88.2 MCH 28.9 MCHC 32.8 RDW 12.7 Plt Count 208 MPV 10.5 H Patient Feedback: Patient satisfied with anesthetic care.
[2020-05-06] MEDS: METOPROLOL TARTRATE 25 MG TABLET PO (08:37)
[2020-05-06] MEDS: lisinopriL 5 MG TABLET PO (08:37)
[2020-05-06] MEDS: FAMOTIDINE 20 MG/2 ML VIAL IV PUSH (08:37)
[2020-05-06] MEDS: TRIAMTERENE 37.5 MG/HCTZ 25 MG (MAXZIDE) TABLET 1 TAB PO (08:37)
[2020-05-06] MEDS: LACTULOSE 20 GM/30 ML UDC PO (08:37)
--- NOTE | 2020-05-06 09:05 | P.DS_ITS ---
DS: Admitting Diagnosis Admitting Diagnosis Admitting Diagnosis: Hypertensive urgency DS: Discharge Diagnosis Discharge Diagnosis (1) Hypertensive urgency: Code(s): I16.0 - Hypertensive urgency Status: Acute Assessment and Plan: * Bp better, pt to start oral bp meds- metoprolol and dyazide and lisinopril (2) Chest pressure: Code(s): R07.89 - Other chest pain Status: Resolved Assessment and Plan: * Likely related to her very high blood pressure. * Troponins have been negative x3. * Echocardiogram in a.m.; there are changes consistent with LVH. (3) Hypothyroidism: Code(s): E03.9 - Hypothyroidism, unspecified Status: Acute Assessment and Plan: * Pt had her US of her thyroid advised to follow up with instructional coordinator on discharge * US thyroid shows- enlarged heterogeneous thyroid. (4) Intractable vomiting: Code(s): R11.10 - Vomiting, unspecified Status: Resolved Assessment and Plan: Pt to have IV pepcid, IV anti-emetics, laxatives Pt to had EGD, nothing found. Nausea believed to be due to high BPs and ? anxiety or migraine related as pt had headache earlier in admission CT head at that time was negative DS: Summary Time Spent with Patient Time attestation: Total time spent providing and/or coordinating discharge services:40 minutes Exam Const: General: cooperative and healthy appearing Nutritional Appearance: overweight Orientation/consciousness: oriented to person Resp: Effort & Inspection: no respiratory distress Auscultation: no rhonchi and no wheezes Cardio: Rate: regular rate Rhythm: regular rhythm GI: Inspection: normal to inspection Auscultation: normal bowel sounds Neuro: General: oriented to person Discharge Plan Discharge Attending physician on discharge: Mary Borrego Consulting providers: Ernesto Wright Discharging Clinician: Mary Borrego Anticipated Discharge Date/Time: 05/06/20 10:00 Patient Disposition: Home, Self-Care Activity: as tolerated Diet: heart healthy Discharge Instructions: Pt can use bland foods if she prefers follow up with instructional coordinator of choice for thryoid nodules -TI RADS 3 nodules, the larger measuring 10 mm found on recent us of thyroid Patient Instructions: Antibiotic Form, Heart Healthy Diet (DC), Hypertension (DC) Stand Alone Forms: General Discharge Information Follow-up/Referrals: Eyad,See Vasques MD [Primary Care Provider] - Discharge Medications: New triamterene-hydrochlorothiazid 37.5-25 mg Tablet 1 tab PO QAM Qty: 90 RF: 0 lisinopril 5 mg Tablet 5 mg PO QAM Qty: 90 RF: 0 metoprolol tartrate 25 mg Tablet 25 mg PO Q12HR Qty: 60 RF: 0 Continued levothyroxine [Synthroid] 150 mcg Tablet 150 mcg PO DAILY RF: 0 Date of admission: 05/04/20 15:14 Primary Care Provider: ConnieSee Admitting Provider: José Miguel Nails Discharge Date/Time: 05/06/20 16:15 Attending physician on admission: José Miguel Nails Condition: Stable
[2020-05-06] MEDS: ACETAMINOPHEN 325 MG TABLET 650 MG PO (12:13)
[2020-05-06 14:00] VITALS: BP 133/82; PULSE 70; RESP 16; TEMP 36.8; O2SAT 100
--- NOTE | 2020-05-06 16:31 | PC.NURSE ---
Pt has discharge orders. Pt has had IV removed, and discharge paperwork has been reviewed. Opportunities for questions was provided and pt exhibited good understanding of all discharge instructions. Pt was assisted to the front door by staff.
== END 2020-05-06 16:15 | disposition home or self-care (01) | DRG 305 ==
LOC: ANHED 14:34 → ANHIMU 15:43 → ANH3MEDSUR 05-03 18:39
PROVIDERS: Internal Medicine Gastroenterology; Physician Assistant; Admitting Provider Internal Medicine; Emergency Provider Emergency Medicine; PCP Family Medicine; Visit Provider Family Medicine
PROC: 0DJ08ZZ Inspection of Upper Intestinal Tract, Via Natural or Artificial Opening Endoscopic (ICD-10-PCS; CPT 43235; principal; 2020-05-05 10:00)
DX: I16.1 Hypertensive emergency (principal); E03.9 Hypothyroidism, unspecified; Z87.891 Personal history of nicotine dependence; G43.909 Migraine, unspecified, not intractable, without status migrainosus; F41.9 Anxiety disorder, unspecified
CPT/HCPCS: 36415; 70450; 71046; 74018; 76536; 80048; 80053; 80061; 80076; 81003; 83735; 84439; 84443; 84480; 84484; 85025; 85027; 85610; 85730; 87081; 93005; 93306; 93976; 96374; 96376; 99285; A9270; J0360; J2270; J2405; J2704; J7120

== ENCOUNTER 2022-09-06 17:46 | Emergency (ER) | payer OTHER, SELFPAY ==
[2022-09-06 18:02] VITALS: BP 126/91; PULSE 79; RESP 16; TEMP 36.7; O2SAT 98
--- NOTE | 2022-09-06 18:48 | ED.URI ---
HPI - URI/Sore Throat General Chief Complaint: Upper Respiratory Infection Stated Complaint: sore throat, achy Time Seen by Provider: 09/06/22 18:08 Source: patient Mode of arrival: ambulatory Limitations: no limitations History of Present Illness HPI Narrative: Patient presents today complaining of headache, sore throat, and bilateral ear fullness since last night. Denies any congestion, cough, or any additional symptoms. Sore throat is only present with swallow, and she currently rates it 5/10. She has tried no xbkr-zvj-eszhzar treatment prior to arrival. Reports strep throat contact on . Related Data Home Medications Medication Instructions Recorded Confirmed levothyroxine 150 mcg tablet 150 mcg PO DAILY 05/02/20 09/06/22 (Synthroid) cyanocobalamin (vitamin B-12) 1,000 mcg DIRECTED 09/06/22 09/06/22 1,000 mcg/mL injection solution metformin 500 mg tablet,extended 500 mg PO DIRECTED 09/06/22 09/06/22 release 24 hr Allergies Allergy/AdvReac Type Severity Reaction Status Date / Time nitrofurantoin Allergy Unknown Rash Verified 05/05/20 07:04 Review of Systems Review of Systems: CONSTITUTIONAL: Denies body aches, fever, chills, or sweats. EYES: Denies visual changes, redness, or discharge. ENT: Denies rhinorrhea, congestion, or otalgia.+ Sore throat, ear fullness CARDIOVASCULAR: Denies chest pain, palpitations, or edema. RESPIRATORY: Denies cough or dyspnea. GASTROINTESTINAL: Denies abdominal pain, nausea, vomiting, or diarrhea. GENITOURINARY: Denies dysuria or hematuria. SKIN: Denies rash, itching, or wounds. MUSCULOSKELETAL: Denies back pain, joint pain, or myalgia. NEUROLOGIC: Denies numbness, tingling, or weakness.+ headache PSYCH: Denies depression or anxiety. [facility] Past Medical History Medical History History of migraine headaches History of urinary tract infection Hypertension Hypothyroidism Surgical History Surgical History History of appendectomy (2007) History of cholecystectomy History of tubal ligation (~2002) Family History Family History Other Family history of Alzheimer's disease Family history of glaucoma Hypertension Social History Social History Social History: The patient lives with her , their 3 biological children, their recently adopted child, and 2 foster children. She is a [id number] mother. She has a 10 pack year smoking history and quit in 2008. No alcohol or illicit substance abuse. She designates her , Shankar, as her surrogate decision maker and she wishes to be a full code. Smoking packs per day: 1 Smoking cigarettes per day: 20.0 Years smoked: 10 Smoking pack-years: 10.00 Smoking status: Former smoker Alcohol intake: never Substance use: never Substance use type: does not use Spiritual care concerns: No Comments At time of signature, I have reviewed and agree with nursing past medical, surgical, social and family history unless otherwise noted. Please see nursing chart for further information. There is no relevant family history pertinent to the presenting complaint Exam Narrative: GENERAL: Well-appearing, well-nourished, and in no acute distress. HEAD: Normocephalic, atraumatic. EYES: EOMI. No redness or drainage. Conjunctivae normal. ENT: Mucous membranes pink and moist. Nares clear. No rhinorrhea. TMs normal bilaterally. Throat normal. Uvula midline. NECK: Normal AROM. Supple. No lymphadenopathy. CHEST: No respiratory distress. Clear to auscultation. HEART: Regular rate and rhythm. No murmur appreciated. Normal peripheral pulses. EXTREMITIES: Normal range of motion. No edema. SKIN: Warm, dry, no rash. Capillary refill normal. Normal skin turgor.
== END 2022-09-06 19:05 | disposition home or self-care (01) ==
PROVIDERS: Emergency Provider Nurse Practitioner; PCP Family Medicine
DX: J06.9 Acute upper respiratory infection, unspecified (principal); Z87.891 Personal history of nicotine dependence; I10 Essential (primary) hypertension; E03.9 Hypothyroidism, unspecified
CPT/HCPCS: 87081; 87880; 99213; G0463

== ENCOUNTER 2022-09-13 11:29 | Emergency (ER) | payer OTHER, SELFPAY ==
[2022-09-13 11:43] VITALS: BP 137/80; PULSE 67; RESP 16; TEMP 36.2; O2SAT 99
--- NOTE | 2022-09-13 11:53 | ED.FEMALEGU ---
HPI - Female Genitourinary General Chief complaint: Urogenital-Female Stated complaint: uti Time Seen by Provider: 09/13/22 11:45 Source: patient Mode of arrival: ambulatory Limitations: no limitations History of Present Illness HPI Narrative: Ms. Parekh is a 47-year-old female patient presenting to the clinic today with complaints possible UTI. She reports her symptoms began around 2:00 a.m. this morning. States she is having some burning and frequency with urination. She denies any flank pain or abdominal pain. She denies any fever or chills Related Data Home Medications Medication Instructions Recorded Confirmed levothyroxine 150 mcg tablet 150 mcg PO DAILY 05/02/20 09/06/22 (Synthroid) cyanocobalamin (vitamin B-12) 1,000 mcg DIRECTED 09/06/22 09/06/22 1,000 mcg/mL injection solution metformin 500 mg tablet,extended 500 mg PO DIRECTED 09/06/22 09/06/22 release 24 hr Allergies Allergy/AdvReac Type Severity Reaction Status Date / Time nitrofurantoin Allergy Unknown Rash Verified 09/13/22 11:45 ciprofloxacin [From Cipro] Allergy Other Verified 09/13/22 11:45 sulfamethoxazole Allergy Rash Verified 09/13/22 11:45 [From Bactrim] trimethoprim [From Bactrim] Allergy Rash Verified 09/13/22 11:45 Review of Systems Review of Systems: Pertinent positives per HPI. Patient denies any fever, chills, rash, headache, visual changes, dizziness, cough, runny nose, sore throat, shortness of breath, chest pain, palpitations, nausea, vomiting, diarrhea, constipation, abdominal pain, PMFSH Past Medical History Medical History History of migraine headaches History of urinary tract infection Hypertension Hypothyroidism Surgical History Surgical History History of appendectomy (2007) History of cholecystectomy History of tubal ligation (~2002) Family History Family History Other Family history of Alzheimer's disease Family history of glaucoma Hypertension Social History Social History Social History: The patient lives with her , their 3 biological children, their recently adopted child, and 2 foster children. She is a [id number] mother. She has a 10 pack year smoking history and quit in 2008. No alcohol or illicit substance abuse. She designates her , Shankar, as her surrogate decision maker and she wishes to be a full code. Smoking packs per day: 1 Smoking cigarettes per day: 20.0 Years smoked: 10 Smoking pack-years: 10.00 Smoking status: Former smoker Alcohol intake: never Substance use: never Substance use type: does not use Spiritual care concerns: No Comments At the time of my signature, I reviewed and agree with the nursing past medical, surgical, social, and family history. There is no relevant family history pertinent to the patient complaint. Exam Narrative: General: Well-developed, well nourished, in no apparent distress. Head: Normocephalic, atraumatic. Cardio: Regular rate and rhythm, s1 and s2 normal, no murmur appreciated. Resp: Clear to auscultation bilaterally, no rhonchi, rales, wheezing or rubs. Abdomen: Soft, pliable, bowel sounds present in all quadrants, non-tender to palpation, no organomegly, no CVAT tenderness. Course Course Emergency Course: Portions of this record may have been created with voice recognition software. Level of Care: Express Care Visit Vital Signs Vital signs: Vital Signs Temperature 36.2 C L 09/13/22 11:43 Pulse Rate 67 09/13/22 11:43 Respiratory Rate 16 09/13/22 11:43 Blood Pressure 137/80 09/13/22 11:43 Pulse Oximetry 99 09/13/22 11:43 Oxygen Delivery Room Air 09/13/22 11:43 Temperature 36.2 C L 09/13/22 11:43 Pulse Rate 67
== END 2022-09-13 12:02 | disposition home or self-care (01) ==
PROVIDERS: Emergency Provider Nurse Practitioner Family; PCP Family Medicine
DX: N30.01 Acute cystitis with hematuria (principal); I10 Essential (primary) hypertension; E03.9 Hypothyroidism, unspecified; Z87.891 Personal history of nicotine dependence
CPT/HCPCS: 81003; 87077; 87086; 87186; 99213; G0463

== ENCOUNTER 2022-11-06 09:11 | Emergency (ER) | payer OTHER, SELFPAY ==
[2022-11-06 09:15] VITALS: BP 128/84; PULSE 66; RESP 16; TEMP 36.2; O2SAT 99
--- NOTE | 2022-11-06 09:40 | ED.URI ---
HPI - URI/Sore Throat General Chief Complaint: Urogenital-Female Stated Complaint: UTI Time Seen by Provider: 11/06/22 09:13 Source: patient Mode of arrival: ambulatory Limitations: no limitations History of Present Illness HPI Narrative: Ms. Parekh is a 47-year-old female patient presenting to the clinic today with complaints of possible urinary tract infection. She reports she is having burning, frequency, and urgency for the past few days. States that she was recently treated for a urinary tract infection last month and is concerned that it may have not gone away all the way. She denies any abdominal pain or flank pain. She denies any fever or chills Related Data Home Medications Medication Instructions Recorded Confirmed levothyroxine 150 mcg tablet 150 mcg PO DAILY 05/02/20 11/06/22 (Synthroid) cyanocobalamin (vitamin B-12) 1,000 mcg DIRECTED 09/06/22 11/06/22 1,000 mcg/mL injection solution metformin 500 mg tablet,extended 500 mg PO DIRECTED 09/06/22 11/06/22 release 24 hr Allergies Allergy/AdvReac Type Severity Reaction Status Date / Time nitrofurantoin Allergy Unknown Rash Verified 11/06/22 09:40 ciprofloxacin [From Cipro] Allergy Other Verified 11/06/22 09:40 sulfamethoxazole Allergy Rash Verified 11/06/22 09:40 [From Bactrim] trimethoprim [From Bactrim] Allergy Rash Verified 11/06/22 09:40 PMF Past Medical History Medical History History of migraine headaches History of urinary tract infection Hypertension Hypothyroidism Surgical History Surgical History History of appendectomy (2007) History of cholecystectomy History of tubal ligation (~2002) Family History Family History Other Family history of Alzheimer's disease Family history of glaucoma Hypertension Social History Social History Social History: The patient lives with her , their 3 biological children, their recently adopted child, and 2 foster children. She is a [id number] mother. She has a 10 pack year smoking history and quit in 2008. No alcohol or illicit substance abuse. She designates her , Al, as her surrogate decision maker and she wishes to be a full code. Smoking packs per day: 1 Smoking cigarettes per day: 20.0 Years smoked: 10 Smoking pack-years: 10.00 Smoking status: Former smoker Alcohol intake: never Substance use: never Substance use type: does not use Spiritual care concerns: No Comments At the time of my signature, I reviewed and agree with the nursing past medical, surgical, social, and family history. There is no relevant family history pertinent to the patient complaint. Exam Narrative: Pertinent positives per HPI. Patient denies any fever, chills, rash, headache, visual changes, dizziness, cough, runny nose, sore throat, shortness of breath, chest pain, palpitations, nausea, vomiting, diarrhea, constipation, or any abdominal pain. Course Course Emergency Course: Portions of this record may have been created with voice recognition software. Level of Care: Express Care Visit Vital Signs Vital signs: Vital Signs Temperature 36.2 C L 11/06/22 09:15 Pulse Rate 66 11/06/22 09:15 Respiratory Rate 16 11/06/22 09:15 Blood Pressure 128/84 11/06/22 09:15 Pulse Oximetry 99 11/06/22 09:15 Oxygen Delivery Room Air 11/06/22 09:15 Temperature 36.2 C L 11/06/22 09:15 Pulse Rate 66 11/06/22 09:15 Respiratory Rate 16 11/06/22 09:15 Blood Pressure 128/84 11/06/22 09:15 Pulse Oximetry 99 11/06/22 09:15 Oxygen Delivery Room Air 11/06/22 09:15 Vital signs reviewed MDM - URI/Sore Throat MDM Narrative Medical decision making narrative: At the time of visit patient is res
== END 2022-11-06 09:56 | disposition home or self-care (01) ==
PROVIDERS: Emergency Provider Nurse Practitioner Family; PCP Family Medicine
DX: N39.0 Urinary tract infection, site not specified (principal); Z87.891 Personal history of nicotine dependence; I10 Essential (primary) hypertension; E03.9 Hypothyroidism, unspecified
CPT/HCPCS: 81003; 87077; 87086; 87186; 99213; G0463

== ENCOUNTER 2022-12-11 11:41 | Emergency (ER) | payer OTHER, SELFPAY ==
[2022-12-11 11:48] VITALS: BP 123/81; PULSE 68; RESP 18; TEMP 36.4; O2SAT 99
[2022-12-11 11:53] VITALS: BP 123/81; PULSE 68; RESP 18; TEMP 36.4; O2SAT 99
--- NOTE | 2022-12-11 12:02 | ED.FEMALEGU ---
HPI - Female Genitourinary General Chief complaint: Urogenital-Female Stated complaint: uti Time Seen by Provider: 12/11/22 11:50 Source: patient Mode of arrival: ambulatory Limitations: no limitations History of Present Illness HPI Narrative: Nataly is a 47-year-old female patient presenting to the clinic today with complaints of possible urinary tract infection. She reports she is having urgency, frequency, and burning with urination. This has been going on since Friday. She denies any fever or chills. She denies any abdominal pain or flank pain. Does have multiple antibiotic allergies. Related Data Home Medications Medication Instructions Recorded Confirmed levothyroxine 150 mcg tablet 150 mcg PO DAILY 05/02/20 12/11/22 (Synthroid) cyanocobalamin (vitamin B-12) 1,000 mcg DIRECTED 09/06/22 12/11/22 1,000 mcg/mL injection solution metformin 500 mg tablet,extended 500 mg PO DIRECTED 09/06/22 12/11/22 release 24 hr spironolactone 50 mg tablet 50 mg PO DAILY 12/11/22 12/11/22 Allergies Allergy/AdvReac Type Severity Reaction Status Date / Time nitrofurantoin Allergy Unknown Rash Verified 12/11/22 11:46 ciprofloxacin [From Cipro] Allergy Other Verified 12/11/22 11:46 sulfamethoxazole Allergy Rash Verified 12/11/22 11:46 [From Bactrim] trimethoprim [From Bactrim] Allergy Rash Verified 12/11/22 11:46 Review of Systems Review of Systems: Pertinent positives per HPI. Patient denies any fever, chills, rash, headache, visual changes, dizziness, cough, runny nose, sore throat, shortness of breath, chest pain, palpitations, nausea, vomiting, diarrhea, constipation, abdominal pain. [facility] Past Medical History Medical History History of migraine headaches History of urinary tract infection Hypertension Hypothyroidism Surgical History Surgical History History of appendectomy (2007) History of cholecystectomy History of tubal ligation (~2002) Family History Family History Other Family history of Alzheimer's disease Family history of glaucoma Hypertension Social History Social History Social History: The patient lives with her , their 3 biological children, their recently adopted child, and 2 foster children. She is a [id number] mother. She has a 10 pack year smoking history and quit in 2008. No alcohol or illicit substance abuse. She designates her , Al, as her surrogate decision maker and she wishes to be a full code. Smoking packs per day: 1 Smoking cigarettes per day: 20.0 Years smoked: 10 Smoking pack-years: 10.00 Smoking status: Former smoker Alcohol intake: never Substance use: never Substance use type: does not use Spiritual care concerns: No Comments At the time of my signature, I reviewed and agree with the nursing past medical, surgical, social, and family history. There is no relevant family history pertinent to the patient complaint. Exam Narrative: General: Well-developed, well nourished, in no apparent distress. Head: Normocephalic, atraumatic. Cardio: Regular rate and rhythm, s1 and s2 normal, no murmur appreciated. Resp: Clear to auscultation bilaterally, no rhonchi, rales, wheezing or rubs. Abdomen: Soft, pliable, bowel sounds present in all quadrants, non-tender to palpation, no organomegly, no CVAT tenderness. Course Course Emergency Course: Portions of this record may have been created with voice recognition software. Level of Care: Express Care Visit Vital Signs Vital signs: Vital Signs Temperature 36.4 C L 12/11/22 11:48 Pulse Rate 68 12/11/22 11:48 Respiratory Rate 18 12/11/22 11:48 Blood Pressure 123/81 12/11/22 11:48 Pulse Oximetry 99 12/11/22 11:48 O
[2022-12-11 12:05] VITALS: BP 123/81; PULSE 68; RESP 18; TEMP 36.5; O2SAT 99
== END 2022-12-11 12:12 | disposition home or self-care (01) ==
PROVIDERS: Emergency Provider Nurse Practitioner Family; PCP Family Medicine
DX: N30.01 Acute cystitis with hematuria (principal); I10 Essential (primary) hypertension; E03.9 Hypothyroidism, unspecified; Z87.891 Personal history of nicotine dependence; Z79.84 Long term (current) use of oral hypoglycemic drugs
CPT/HCPCS: 81003; 87077; 87086; 87147; 87181; 87186; 99213; G0463

== ENCOUNTER 2023-01-13 21:09 | Emergency (ER) | payer OTHER, SELFPAY ==
--- NOTE | ~2023-01-13 | XR_ITS ---
EXAM: XR ankle LT min 3V DATE: 01/13/2023 21:36 HISTORY: tripped and hurt L.ankle . COMPARISON: None available. FINDINGS: Normal mineralization. No fracture or dislocation. No lytic or blastic lesion. Mild degene rative changes. Plantar enthesopathy. No erosion or periosteal change. Soft tissues within normal camara its. IMPRESSION: No acute osseous finding in the left ankle. Reviewed, dictated and finalized at location K.
[2023-01-13 21:11] VITALS: BP 153/82; PULSE 73; RESP 16; TEMP 36; O2SAT 100
--- NOTE | 2023-01-14 02:00 | ED.LOWEXIN ---
HPI - Extremity Injury (Lower) General Chief Complaint: Extremity Injury, Lower Stated Complaint: left ankle pain after missing step Time Seen by Provider: 01/14/23 01:49 History of Present Illness HPI Narrative: 47-year-old female with history of hypertension reports to the ED for evaluation of left ankle pain after she missed a step and rolled her ankle 11 hours ago. Patient reports she was walking on the stairs, missed the step and inverted her L ankle. Pain is worse over the lateral ankle. Denies hitting her head, LOC, hitting the ground. Pt reports she was immediately able to ambulate on that foot, however it was with a limp. She reports tingling in her L foot. She has not taken anything for pain. Reports icing it 4 hours after the injury. Related Data Home Medications Medication Instructions Recorded Confirmed levothyroxine 150 mcg tablet 150 mcg PO DAILY 05/02/20 12/11/22 (Synthroid) cyanocobalamin (vitamin B-12) 1,000 mcg DIRECTED 09/06/22 12/11/22 1,000 mcg/mL injection solution metformin 500 mg tablet,extended 500 mg PO DIRECTED 09/06/22 12/11/22 release 24 hr spironolactone 50 mg tablet 50 mg PO DAILY 12/11/22 12/11/22 Allergies Allergy/AdvReac Type Severity Reaction Status Date / Time nitrofurantoin Allergy Unknown Rash Verified 01/13/23 21:09 ciprofloxacin [From Cipro] Allergy Other Verified 01/13/23 21:09 sulfamethoxazole Allergy Rash Verified 01/13/23 21:09 [From Bactrim] trimethoprim [From Bactrim] Allergy Rash Verified 01/13/23 21:09 Review of Systems Review of Systems: CONSTITUTIONAL: Denies fever, chills EYES: Denies visual changes, redness, or discharge. ENT: Denies rhinorrhea, congestion, sore throat, or otalgia. CARDIOVASCULAR: Denies chest pain, palpitations, or edema. RESPIRATORY: Denies cough or dyspnea. GASTROINTESTINAL: Denies abdominal pain, nausea, vomiting, or diarrhea. GENITOURINARY: Denies dysuria or hematuria. SKIN: Denies rash or itching. MUSCULOSKELETAL: Denies back pain. NEUROLOGIC: Denies headache, dizziness, or weakness. PSYCHIATRIC: Denies anxiety or depression. [facility] Past Medical History Medical History History of migraine headaches History of urinary tract infection Hypertension Hypothyroidism Surgical History Surgical History History of appendectomy (2007) History of cholecystectomy History of tubal ligation (~2002) Family History Family History Other Family history of Alzheimer's disease Family history of glaucoma Hypertension Social History Social History Social History: The patient lives with her , their 3 biological children, their recently adopted child, and 2 foster children. She is a [id number] mother. She has a 10 pack year smoking history and quit in 2008. No alcohol or illicit substance abuse. She designates her , Al, as her surrogate decision maker and she wishes to be a full code. Smoking packs per day: 1 Smoking cigarettes per day: 20.0 Years smoked: 10 Smoking pack-years: 10.00 Smoking status: Former smoker Alcohol intake: never Substance use: never Substance use type: does not use Spiritual care concerns: No Exam Narrative: GENERAL: Well-appearing, well-nourished, and in no acute distress. HEAD: Normocephalic, atraumatic. EYES: PERRLA and EOMI. ENT: Nares clear, no rhinorrhea or epistaxis. Mucous membranes moist. Oropharynx without tonsillar hypertrophy exudate or other lesions. NECK: Supple. No adenopathy or masses. No carotid bruits or JVD CHEST: Clear to auscultation. No respiratory distress. No wheezes rales or rhonchi HEART: Regular rate and rhythm. No murmur heard. Normal peripheral pulses. ABDOMEN: Soft, nontender, nondistended, normal active lai
[2023-01-14] MEDS: IBUPROFEN 600 MG TABLET PO (02:32)
== END 2023-01-14 03:00 | disposition home or self-care (01) ==
PROVIDERS: Emergency Provider Physician Assistant; PCP Family Medicine
DX: S93.402A Sprain of unspecified ligament of left ankle, initial encounter (principal); S96.912A Strain of unspecified muscle and tendon at ankle and foot level, left foot, initial encounter; I10 Essential (primary) hypertension; E03.9 Hypothyroidism, unspecified; Z87.440 Personal history of urinary (tract) infections; Z87.891 Personal history of nicotine dependence; X50.9XXA Other and unspecified overexertion or strenuous movements or postures, initial encounter
CPT/HCPCS: 73610; 99283; A9270

== ENCOUNTER 2023-05-09 09:47 | Emergency (ER) | payer OTHER, SELFPAY ==
--- NOTE | 2023-05-09 09:51 | ED.FEMALEGU ---
HPI - Female Genitourinary General Chief complaint: Urogenital-Female Stated complaint: UTI Time Seen by Provider: 05/09/23 10:10 Source: patient Mode of arrival: ambulatory Limitations: no limitations History of Present Illness HPI Narrative: Patient is a 47-year-old female who presents with 1 day of urinary frequency and burning with urination. Patient states she has frequent UTIs and has been seen by urologist. Does report last UTI was months ago. Reports burning with urination and frequency along with decreased output. Denies any fever, chills, low back pain, blood in urine. MD elicited complaint: dysuria Related Data Home Medications Medication Instructions Recorded Confirmed levothyroxine 150 mcg tablet 150 mcg PO DAILY 05/02/20 05/09/23 (Synthroid) cyanocobalamin (vitamin B-12) 1,000 mcg DIRECTED 09/06/22 05/09/23 1,000 mcg/mL injection solution metformin 500 mg tablet,extended 500 mg PO DIRECTED 09/06/22 05/09/23 release 24 hr spironolactone 50 mg tablet 50 mg PO DAILY 12/11/22 05/09/23 Allergies Allergy/AdvReac Type Severity Reaction Status Date / Time nitrofurantoin Allergy Unknown Rash Verified 05/09/23 09:53 ciprofloxacin [From Cipro] Allergy Other Verified 05/09/23 09:53 sulfamethoxazole Allergy Rash Verified 05/09/23 09:53 [From Bactrim] trimethoprim [From Bactrim] Allergy Rash Verified 05/09/23 09:53 Review of Systems Review of Systems: All systems reviewed & are unremarkable except as noted in HPI and below Constitutional: Constitutional: Denies chills, Denies fever(s), Denies headache(s), Denies malaise and Denies weakness Eyes: Eyes: Denies change in vision, Denies eye discharge and Denies irritation ENT: Denies otalgia, Denies headache(s), Denies nasal congestion, Denies nasal discharge, Denies sinus pain and Denies sore throat Cardiovascular: Cardiovascular: Denies chest pain, Denies edema, Denies palpitations and Denies dyspnea Respiratory: Respiratory: Denies cough and Denies dyspnea Gastrointestinal: Gastrointestinal: Denies abdominal pain, Denies diarrhea, Denies nausea and Denies vomiting Genitourinary: Genitourinary: Denies hematuria, Reports nocturia, Reports dysuria, Denies flank pain and Reports urinary urgency Musculoskeletal: Musculoskeletal: Denies back pain and Denies numbness Integumentary/Breasts: Skin/Breast: Denies pruritus and Denies rash Neurologic: Denies headache(s), Denies numbness and Denies weakness Psychiatric: Psychiatric: Reports no additional psychiatric complaints Endocrine: Endocrine: Denies palpitations PMFSH Past Medical History Medical History History of migraine headaches History of urinary tract infection Hypertension Hypothyroidism Surgical History Surgical History History of appendectomy (2007) History of cholecystectomy History of tubal ligation (~2002) Family History Family History Other Family history of Alzheimer's disease Family history of glaucoma Hypertension Social History Social History Social History: The patient lives with her , their 3 biological children, their recently adopted child, and 2 foster children. She is a [id number] mother. She has a 10 pack year smoking history and quit in 2008. No alcohol or illicit substance abuse. She designates her , Al, as her surrogate decision maker and she wishes to be a full code. Smoking packs per day: 1 Smoking cigarettes per day: 20.0 Years smoked: 10 Smoking pack-years: 10.00 Smoking status: Former smoker Alcohol intake: never Substance use: never Substance use type: does not use Spiritual care concerns: No Comments At time of signature, agree with nursing past medical, surgical, socia
[2023-05-09 10:03] VITALS: BP 151/97; PULSE 65; RESP 16; TEMP 36.3; O2SAT 97
== END 2023-05-09 10:40 | disposition home or self-care (01) ==
PROVIDERS: Emergency Provider Nurse Practitioner Family; PCP Family Medicine
DX: N39.0 Urinary tract infection, site not specified (principal); Z87.891 Personal history of nicotine dependence; I10 Essential (primary) hypertension; E03.9 Hypothyroidism, unspecified
CPT/HCPCS: 81003; 87077; 87086; 87186; 99213; G0463